=== PATIENT | male | born 1990 ===

== ENCOUNTER 2016-07-05 21:04 | Emergency (ER) | payer OTHER ==
[2016-07-05 21:52] VITALS: BP 113/51
[2016-07-05] MEDS ORDERED: Cephalexin CAP* 500 MG PO ONE ×2 (22:02)
--- NOTE | 2016-07-05 22:06 | UC ---
Throat Pain/Nasal Mehul HPI - HPI Summary HPI Summary: 26 yo male with sore throat x 2 days no f/c no andrews able to eat and drink know exposure to strep - History of Current Complaint Chief Complaint: UCGeneralIllness Stated Complaint: SORE THROAT Time Seen by Provider: 07/05/16 21:59 Hx Obtained From: Patient Onset/Duration: Gradual Onset, Lasting Days Severity: Moderate Pain Intensity: 4 Pain Scale Used: 0-10 Numeric - Epiglottits Risk Factors Epiglottis Risk Factors: Negative - Allergies/Home Medications Allergies/Adverse Reactions: Allergies Allergy/AdvReac Type Severity Reaction Status Date / Time No Known Allergies Allergy Verified 07/05/16 21:51 Home Medications: Home Medications clonazePAM TAB(*) [Klonopin TAB(*)] 1 mg PO BID 07/05/16 [History Confirmed 02/10] PMH/Surg Hx/FS Hx/Imm Hx Previously Healthy: Yes - Surgical History Surgical History: None - Family History Known Family History: Positive: Hypertension - Social History Alcohol Use: Rare Substance Use Type: None Smoking Status (MU): Never Smoked Tobacco Review of Systems Constitutional: Negative Skin: Negative Eyes: Negative ENT: Sore Throat Respiratory: Negative Cardiovascular: Negative Gastrointestinal: Negative Genitourinary: Negative Motor: Negative Neurovascular: Negative Musculoskeletal: Negative Neurological: Negative Psychological: Negative All Other Systems Reviewed And Are Negative: Yes Physical Exam Triage Information Reviewed: Yes Appearance: Well-Appearing, No Pain Distress, Well-Nourished Vital Signs: Initial Vital Signs Temp 99.2 F 07/05/16 21:48 Pulse 71 07/05/16 21:48 Resp 16 07/05/16 21:48 BP 113/51 07/05/16 21:48 Pulse Ox 99 07/05/16 21:48 Eye Exam: Normal ENT: Positive: Hearing grossly normal, Pharyngeal erythema, TMs normal, Tonsillar swelling, Tonsillar exudate. Negative: Pharynx normal, Nasal congestion, Nasal drainage, Trismus, Muffled/hoarse voice Neck: Positive: Supple, Nontender, Enlarged Nodes @ - ant cervical nodes Respiratory: Positive: Lungs clear, Normal breath sounds, No respiratory distress, No accessory muscle use Cardiovascular: Positive: RRR, No Murmur, Pulses Normal Musculoskeletal: Positive: ROM Intact, No Edema Neurological: Positive: Alert, Muscle Tone Normal. Negative: Fatigued Psychological Exam: Normal Skin Exam: Normal Throat Pain/Nasal Course/Dx - Course Assessment/Plan: RS (-) - Differential Dx/Diagnosis Provider Diagnoses: acute exudative tonsillitis Discharge - Discharge Plan Condition: Stable Disposition: HOME Prescriptions: Cephalexin CAP* [Keflex CAP*] 500 mg PO BID #[id number] cap Referrals: Anum Taylor MD [Primary Care Provider] -
== END 2016-07-05 22:19 | disposition home or self-care (01) ==
LOC: UCCORT 21:04
DX: J03.90 Acute tonsillitis, unspecified (principal)
CPT/HCPCS: 87651; 99202; A9270-GY; G0463

== ENCOUNTER 2017-04-02 16:36 | Emergency (ER) | payer OTHER | END 2017-04-02 17:56 | disposition left against medical advice (07) | LOC: UCCORT 16:36 | DX: S89.91XA Unspecified injury of right lower leg, initial encounter (principal); Z53.21 Procedure and treatment not carried out due to patient leaving prior to being seen by health care provider ==